=== PATIENT | female | born 2000 | race Caucasian/White ===

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

== ENCOUNTER 2018-01-08 00:18 | Outpatient (CLI) | payer OTHER ==
[2018-01-08] MEDS ORDERED: RINGERS SOLUTION,LACTATED 1,000 ML IV PRN (00:37)
[2018-01-08 01:02] LABS: APPEARANCE,URINE CLOUDY; BILIRUBIN,URINE NEGATIVE (NEGATIVE); COLOR,URINE YELLOW; GLUCOSE, URINE NEGATIVE (NEGATIVE); KETONES,URINE NEGATIVE (NEGATIVE); LEUKOCYTE ESTERASE,URINE NEGATIVE (NEGATIVE); NITRITE,URINE NEGATIVE (NEGATIVE); PROTEIN,URINE NEGATIVE (NEGATIVE); URINE SPECIFIC GRAVITY 1.016; UROBILINOGEN,URINE NEGATIVE mg/dL (<2.0)
[2018-01-08 01:27] LABS: URINE AMPHETAMINES SCREEN NEGATIVE; URINE BARBITURATES SCREEN NEGATIVE; URINE BENZODIAZEPINES SCREEN NEGATIVE; URINE COCAINE SCREEN NEGATIVE; URINE MARIJUANA (THC) SCREEN NEGATIVE; URINE METHADONE SCREEN NEGATIVE; URINE PHENCYCLIDINE SCREEN NEGATIVE
[2018-01-08] MEDS ORDERED: HYDROXYZINE PAMOATE 50 MG CAPSULE ONE (02:21)
[2018-01-08] MEDS ORDERED: HYDROXYZINE PAMOATE 50 MG CAPSULE PO ONE (02:30)
--- NOTE | 2018-01-08 02:40 | Non Stress Test Report ---
Non Stress Test Datetime Report Generated by CPN: 01/08/2018 02:39 DEMOGRAPHIC Test Number: 5 EGA NST: 38.1 INDICATION Indication for Study: Ordered by Provider MONITORING Monitor Explained: Monitor Explained; Test Explained; Patient Verbalized Understanding Time on Monitor: 01/08/2018 01:00 Time off Monitor: 01/08/2018 02:35 NST Duration: 95 NST INTERVENTIONS NST Interventions: PO Hydration; IV Fluids; Reposition Patient Physician Notified NST: Dr. Rodriguez BABY A: [id number] BABY A Movement : Present Contraction Frequency : 1-6 FHR Baseline : 135 Accelerations : 15X15 Decelerations : None Variability : Moderate 6-25bpm NST Review: Meets Criteria for Reactive NST NST Review and Verified By : REI Padron NST Results: Reactive NST REPORT Report Trigger: Send Report
== END 2018-01-08 03:00 | disposition home or self-care (01) ==
LOC: LC 00:18
PROVIDERS: ATTEND Obstetrics & Gynecology Gynecology
PROC: 4A1HXCZ Monitoring of Products of Conception, Cardiac Rate, External Approach (ICD-10-PCS; principal; 2018-01-08)
DX: O47.1 False labor at or after 37 completed weeks of gestation (principal); Z3A.38 38 weeks gestation of pregnancy
CPT/HCPCS: 80307; 81005

== ENCOUNTER 2018-01-08 08:15 | Inpatient (IN) | payer OTHER ==
[2018-01-08 08:56] LABS: APPEARANCE,URINE CLOUDY; BILIRUBIN,URINE NEGATIVE (NEGATIVE); COLOR,URINE STRAW; GLUCOSE, URINE NEGATIVE (NEGATIVE); KETONES,URINE NEGATIVE (NEGATIVE); LEUKOCYTE ESTERASE,URINE NEGATIVE (NEGATIVE); NITRITE,URINE NEGATIVE (NEGATIVE); PROTEIN,URINE NEGATIVE (NEGATIVE); URINE SPECIFIC GRAVITY 1.006; UROBILINOGEN,URINE NEGATIVE mg/dL (<2.0)
[2018-01-08 09:15] LABS: URINE AMPHETAMINES SCREEN NEGATIVE; URINE BARBITURATES SCREEN NEGATIVE; URINE BENZODIAZEPINES SCREEN NEGATIVE; URINE COCAINE SCREEN NEGATIVE; URINE MARIJUANA (THC) SCREEN NEGATIVE; URINE METHADONE SCREEN NEGATIVE; URINE PHENCYCLIDINE SCREEN NEGATIVE
--- NOTE | 2018-01-08 09:20 | Admission Physical ---
Datetime Report Generated by CPN: 01/08/2018 09:19 CURRENT ADMISSION Chief Complaint: Suspected Ruptured Membranes Indication for Induction: PROM Admit Impression : Term, Intrauterine ; No Active Labor Admit Plan: Initiate Labor Augmentation Protocol ALLERGIES Medication Allergies: No Medication Allergies: mushroom (01/08/2018) Latex: No Latex Allergies Food Allergies: mushrooms-swelling Environmental Allergies: denies OBSTETRICAL HISTORY EDC: 01/21/2018 00:00 : 1 Para: 0 Term: 0 : 0 SAB: 0 IAB: 0 Ectopic: 0 Livin Cesareans: 0 VBACs: 0 Multiple Births: 0 Gestational Diabetes: No Rh Sensitization: No Incompetent Cervix: No DELANEY: No Infertility: No ART Treatment: No Uterine Anomaly: No IUGR: No Hx Previous C/S: No Macrosomia: No Hx Loss/Stillborn: No PIH: No Hx : No Placenta Previa/Abruption: No Depression/PP Depression: No PTL/PROM: No Post Hemorrhage: No Current Procedures: Ultrasound Obstetrical History Comments: g1-current SEE RECORDS Alcohol: No Marijuana : No Cocaine: No Other Illicit Drugs: No Cigarettes: Never Smoker. 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 Heart Disease: No Hosp/Surgery: Yes Autoimmune Disorder: No Anesthetic Complications: No Kidney Disease: No Abnormal Pap Smear: No Neuro/Epilepsy: No Psychiatric Disorders: No Other Medical Diseases: Yes Hepatitis/Liver Disease: No Significant Family History: No Varicosities/Phlebitis: No Trauma/Violence : No Thyroid Dysfunction: No Medical History Comments: 2015 appendix removed, 2013 left knee partial reconstruction, 2016 right knee acl surgery, wisdom teeth removed, vasovagal nerve "attacks itself and is easily stimulated" and patient vasovagals and has syncopal episodes, occasional anxiety but never required medications INFECTIOUS HISTORY Gonorrhea: No Genital Herpes: No Chlamydia: No Tuberculosis: No Syphilis: No Hepatitis: No HIV/AIDS Exposure: No Rash or Viral Illness: No HPV: No PHYSICAL EXAM General: Normal HEENT: Deferred Neurologic: Normal Thyroid: Deferred Heart: Normal Lungs: Normal Breast: Deferred Back: Deferred Abdomen: Normal Genitourinary Exam: Normal Extremities: Normal DTRs: Deferred Pelvic Type: Adequate Physical Exam Comments: cervix exam per RN Vital Signs: Reviewed MEMBRANES Membranes: Ruptured Amniotic Fluid Color: Clear FETUS A EGA: 38.1 Monitoring: External US FHR- Baseline: 132 Variability: Moderate 6-25bpm Decelerations: None Presentation: Vertex Admit Comment: GBS + benign pn hx PLANS FOR LABOR AND DELIVERY Labor and Delivery: None Pain Management: Epidural Feeding Preference: Breast Benefit of Breast Feed Discussed: Yes Circumcision: Yes INFORMED CONSENT Assignment: Nadia Jeff MD Signature: with User ID: Olegario : with User ID: [email or web address]
[2018-01-08] MEDS ORDERED: OXYTOCIN/NORMAL SALINE 20 UNIT/1,000 ML RTUINJ IV PRN (09:25)
[2018-01-08] MEDS ORDERED: MISOPROSTOL 0.2 MG TABLET ONE (10:41)
[2018-01-08] MEDS ORDERED: OXYTOCIN/NORMAL SALINE 20 UNIT/1,000 ML RTUINJ ONE (10:42)
[2018-01-08] MEDS ORDERED: LIDOCAINE 1% INJ-PF (10 MG/ML) 30 ML SDV ONE (10:42)
[2018-01-08 11:31] LABS: ABSOLUTE LYMPHOCYTES (AUTO) 1.9 10^3/uL (0.5-4.7); ABSOLUTE MONOCYTES (AUTO) 0.9 10^3/uL (0.1-1.4); BASOPHILS % (AUTO) 0.3 % (0-2); EOSINOPHILS % (AUTO) 0.2 % (0-6); HEMATOCRIT 28.2 % (36.0-47.0); HEMOGLOBIN 9.5 g/dL (12.0-15.5); LYMPHOCYTES % (AUTO) 13.7 % (13-45); MEAN CORPUSCULAR HEMOGLOBIN 26.8 pg (27.0-33.4); MEAN CORPUSCULAR HGB CONC 33.6 g/dL (32.0-36.0); MEAN CORPUSCULAR VOLUME 80 fl (80-97); MONOCYTES % (AUTO) 6.7 % (3-13); PLATELET COUNT 165 10^3/uL (150-450); RED BLOOD COUNT 3.54 10^6/uL (3.72-5.28); RED CELL DISTRIBUTION WIDTH 14.6 % (11.5-14.0); SEGMENTED NEUTROPHILS % (AUTO) 79.1 % (42-78); TOTAL CELLS COUNTED % (AUTO) 100 %; WHITE BLOOD COUNT 13.9 10^3/uL (4.0-10.5)
[2018-01-08] MEDS ORDERED: NORMAL SALINE 250 ML IV PRN (12:57)
[2018-01-08] MEDS ORDERED: PROMETHAZINE HCL INJ 25 MG/1 ML VIAL ONE (14:44)
[2018-01-08] MEDS ORDERED: NALBUPHINE HCL INJ 10 MG/1 ML AMPULE ONE (14:44)
[2018-01-08] MEDS ORDERED: FENTANYL/BUPIVACAINE/NS/PF 300 MCG/150 ML RTUINJ EPI ONE (17:13)
[2018-01-08] MEDS ORDERED: BUPIVACAINE HCL 0.5 % INJ/PF 30 ML SDV ONE (17:13)
[2018-01-08] MEDS ORDERED: EPHEDRINE SULFATE INJ 50 MG/1 ML AMPULE ONE (17:13)
[2018-01-08] MEDS ORDERED: AMPICILLIN SOD INJ 2 GM VIAL ONE (19:48)
[2018-01-08] MEDS ORDERED: AMPICILLIN SOD INJ 2 GM VIAL IV ONE (19:52)
--- NOTE | 2018-01-08 21:41 | L&D Progress Notes ---
PROGRESS NOTES Datetime Report Generated by CPN: 01/08/2018 21:41 PROGRESS NOTE Impression: Normal Progression of Labor Procedures: Intrauterine Pressure Catheter Plan: Continue Present Management Vital Signs : Reviewed; Within Normal Limits Comment: IUPC placed in hopes of getting fetus to rotate. MVU calculated, which are adequate. Will continue to reposition pt. VAGINAL EXAM Dilatation: 4 Effacement: 100 Station: -1 Contractions: q 2-3 LAST VAGINAL EXAM-NURSING Dilitation: 4.0 Dilitation: 4.0 Dilitation: 4.0 Dilitation: 3.0 Dilitation: 1.5 Dilitation: 1.0 Dilitation: 1.0 Dilitation: 0.0 Dilitation: 1.0 Dilitation: 1.0 Dilitation: cl Effacement: 100 Effacement: 70 Effacement: 70 Effacement: 80 Effacement: 50 Effacement: 60 Effacement: 40 Effacement: 0 Effacement: thick Effacement: thick Effacement: th Station: 0 Station: 0 Station: 0 Station: 0 Station: 0 Station: -2 Station: -2 Station: -4 Station: high Station: high Station: hi Contractions: abd palpates firm Contractions: uterine irritability noted Contractions: pt states she has felt 3 contractions since being here. states she has had on and off contractions throughout the day and was in L_D yesterday with contractions. states contractions today are less intense than yesterday. CNM notified of Buna findings Contractions: uterine irritability noted MEMBRANES Membranes: Ruptured Membranes: Ruptured Amniotic Fluid Color: Clear Amniotic Fluid Color: Clear FETUS A FHR - Baseline: 150s Monitoring: External US Variability: Moderate 6-25bpm Decelerations: Early FHR Category: Category II FHR Comments: Will continue to monitor closely : 38.1 : 38.1 : 38.1 Presentation: Vertex Presentation: Vertex SIGNATURE SIGNATURE: ,[id number];,[id number];,[id number] SIGNATURE: ,[id number];,[id number] SIGNATURE: ,[id number] SIGNATURE: 14,[id number] SIGNATURE: 14,[id number] SIGNATURE: 14,[id number] SIGNATURE: 14,[id number] Signature: with User ID: [email or web address]
[2018-01-08] MEDS ORDERED: ACETAMINOPHEN 325 MG TABLET ONE (21:47)
[2018-01-08] MEDS ORDERED: CEFAZOLIN 2 GM/D5W RTU 2 GM/50 ML RTUPB IV ONE (23:35)
[2018-01-08] MEDS ORDERED: CITRIC ACID/SODIUM CITRATE ORAL SOLN 15 ML UDCUP ONE (23:35)
[2018-01-08] MEDS ORDERED: LIDOCAINE 2% INJ-PF (20 MG/ML) 10 ML AMPUL ONE (23:38)
--- NOTE | 2018-01-08 23:41 | L&D Progress Notes ---
PROGRESS NOTES Datetime Report Generated by CPN: 01/08/2018 23:41 PROGRESS NOTE Impression: Arrest of Dilatation/Descent Plan: Deliver- Section Informed Consent Obtained: Section Delivery; Risks, Benefits and Alternatives Discussed Vital Signs : Reviewed; Within Normal Limits Comment: Pt has to made cervical change since 1700. She had some effacement change at 2100, but has remained 4 cm. She has been very uncomfortable secondary to rectal pressure, but feeling the contractions. She states that she is very tired and is requesting a C/S. I am agreeable to this plan with the minimal cervical change and the persistant early decels. I placed an IUPC in hopes of changing the fetus' position. The decels resolved but she made no further change. VAGINAL EXAM Dilatation: 4 Effacement: 100 Station: -1 Dilitation: 4.0 Station: 0 Contractions: UTD pt sitting up in high fowlers MEMBRANES Membranes: Ruptured Amniotic Fluid Color: Clear FETUS A FHR - Baseline: 140s Monitoring: External US Variability: Moderate 6-25bpm Decelerations: Early FHR Category: Category I : 38.1 FETUS C SIGNATURE: 13,[id number];14,[id number];10,[id number] Signature: with User ID: [email or web address]
[2018-01-08] MEDS ORDERED: FENTANYL CITRATE INJ/PF 100 MCG/2 ML AMPUL ONE (23:51)
[2018-01-09] MEDS ORDERED: KETAMINE HCL INJ 500 MG/10 ML VIAL ONE
[2018-01-09] MEDS ORDERED: EPHEDRINE SULFATE INJ 50 MG/1 ML AMPULE ONE (00:01)
[2018-01-09] MEDS ORDERED: FENTANYL CITRATE INJ/PF 100 MCG/2 ML AMPUL ONE (00:01)
[2018-01-09] MEDS ORDERED: OXYTOCIN 10 UNIT/ML VIAL ONE (00:01)
[2018-01-09] MEDS ORDERED: MIDAZOLAM 2 MG/2 ML INJ ONE (00:01)
[2018-01-09] MEDS ORDERED: PROMETHAZINE HCL INJ 25 MG/1 ML VIAL IV PRN ×3 (00:45→01:14)
[2018-01-09] MEDS ORDERED: DIPHENHYDRAMINE HCL 50 MG/ML VIAL IV PRN (00:45)
[2018-01-09] MEDS ORDERED: FENTANYL CITRATE INJ/PF 100 MCG/2 ML AMPUL IV PRN ×3 (00:45)
[2018-01-09] MEDS ORDERED: MORPHINE SULFATE 10 MG/ML INJ IV PRN (00:45)
[2018-01-09] MEDS ORDERED: ONDANSETRON HCL INJ/PF 4 MG/2 ML SDV IV PRN (00:45)
[2018-01-09] MEDS ORDERED: MEPERIDINE HCL/PF INJ 25 MG/1 ML DISP.SYRIN IV PRN (00:45)
[2018-01-09] MEDS ORDERED: ACETAMINOPHEN 1,000 MG/100 ML RTUPB IV ONE (01:13)
[2018-01-09] MEDS ORDERED: ACETAMINOPHEN 325 MG TABLET PO PRN (01:14)
[2018-01-09] MEDS ORDERED: OXYCODONE-ACETAMINOPHEN 5-325 MG TABLET PO PRN ×2 (01:14)
[2018-01-09] MEDS ORDERED: DIPH/PERTUSS(ACELL)/TETANUS VAC/PF 0.5 ML SYR (>=10YO) IM PRN (01:14)
[2018-01-09] MEDS ORDERED: OXYTOCIN/NORMAL SALINE 20 UNIT/1,000 ML RTUINJ IV PRN (01:14)
[2018-01-09] MEDS ORDERED: MEASLES,MUMPS&RUBELLA VACC/PF 0.5 ML VIAL SUBCUT PRN (01:14)
[2018-01-09] MEDS ORDERED: HYDROMORPHONE HCL INJ/PF 2 MG/ML AMPULE IV PRN (01:14)
[2018-01-09] MEDS ORDERED: SIMETHICONE 80 MG TAB.CHEW PO PRN (01:14)
[2018-01-09] MEDS ORDERED: RINGERS SOLUTION,LACTATED 1,000 ML IV PRN (01:14)
--- NOTE | 2018-01-09 01:27 | Operative Report ---
Operative Report DATE OF SURGERY: 01/09/18 PREOPERATIVE DIAGNOSIS: 1. Intrauterine at 38-2/7 weeks. 2. Failure to progress. 3. GBS negative. 4. Maternal fever. 5. Rh-. 6. Rubella immune POSTOPERATIVE DIAGNOSIS: Same OPERATION: Primary low transverse section SURGEON: SD [place] ANESTHESIA: Epidural TISSUE REMOVED OR ALTERED: Placenta COMPLICATIONS: None ESTIMATED BLOOD LOSS: 600 mL INTRAOPERATIVE FINDINGS: Normal uterus, tubes and ovary; male fetus in a cephalic position PROCEDURE: The patient was taken to the operating room where her epidural anesthesia was found to be adequate. She was then prepped and draped in the normal sterile fashion and placed in the dorsal supine position with a leftward tilt. A Pfannenstiel skin incision was then made and carried through to the underlying layers of the fascia with the scalpel. The fascia was incised in the midline and the incision extended laterally with the Santana scissors. The superior aspect of the fascial incision was then grasped with Jose clamps elevated and the underlying rectus muscles dissected off [bluntly]. Attention was then turned to the inferior aspect of the fascial incision which in a similar fashion was grasped, tented up with Jose clamps, and the rectus muscles dissected off [bluntly and sharply]. The rectus muscles were then in the midline and the peritoneum at the amount identified and entered [bluntly]. The peritoneal incision was then extended superiorly and inferiorly with good visualization of the bladder. The bladder blade was inserted and the vesicouterine peritoneum identified grasped with Czech pickups and entered sharply with the Metzenbaum scissors. This incision was then extended laterally with the Metzenbaum scissors and a bladder flap created digitally. The bladder blade was then reinserted and the lower uterine segment incised in a transverse fashion with the scalpel. The uterine incision was then extended bluntly. The bladder blade was removed and the infant's head was delivered from cephalic presentation atraumatically. The nose and mouth were suctioned and the cord doubly clamped and cut. And the was handed off to waiting pediatricians. The placenta was then delivered manually and the uterus exteriorized and cleared of all clots and debris. The uterine incision was then repaired with 1- 0 Vicryl in a running locked fashion. A second layer using 0 chromic was used to obtain hemostasis via imbrication of the initial layer. The bladder flap was then repaired with 3-0 Vicryl in a running fashion. The uterus was returned to the patient's abdomen and Interceed was placed overlying the uterine incision, as well as a piece placed vertically on the anterior surface of the uterus, to prevent adhesions. The gutters were cleared of all clots and debris. All operative sites were noted to be hemostatic. The fascia was reapproximated with 0 Vicryl in a running fashion from each lateral edge to the midline. Subcutaneous fat layer was then closed in an interrupted fashion with 3-0 Vicryl. The skin was closed with 4-0 Monocryl in a running subcuticular fashion . The patient tolerated the procedure well. Sponge, lap, needle and instrument counts are correct x 2. 2 g of Ancef were given prior to skin incision. The patient was taken to the recovery area awake and in stable condition.
--- NOTE | 2018-01-09 03:10 | Delivery Summary ---
Del Sum A-C Datetime Report Generated by CPN: 01/09/2018 03:09 DELIVERY PERSONNEL DELIVERY PERSONNEL: [id number] Delivery Doctor:: Nadia Jeff MD Anesthesiologist:: Robert Crowe MD NUTRITION TEACHER:: Tiara Pichardo CRNA Labor and Delivery Nurse:: Vicenta Mccullough RNzipper trimmer Nurse:: Sharita Weiner RN Parachute Line Tier:: Vicenta Mccullough RN Neonatal Nurse Practitioner:: AV Munguia Nursery Nurse:: Jo-Ann Bosch RN MSN [employer] Director/FINANCIAL INSTITUTION MANAGER: Gabby Rodriguez, BIN TRIPPER OPERATOR [employer] Director/FINANCIAL INSTITUTION MANAGER: Adela Marie, ST MATERNAL INFORMATION Delivery Anesthesia: Epidural Medications After Delivery: Pitocin Drip 20 Units/1000ml NSS Maternal Complications: Maternal Fever Provider Comments: Pt presented to L_D with SROM. Pt labored and remained 4 cm from 1700 to 2300. She became frustrated and tired of feeling a tremendous amount of pressure in spite of her epidural. She also developed a fever and was given Ampicillin. Pt requested a C/S and I agreed that this was the best route delivery at this time secondary to fever and FTP. LABOR SUMMARY EDC: 01/21/2018 00:00 No. Babies in Womb: 1 Attempted: No Labor Anesthesia: Epidural LABOR INFORMATION Reason for Induction: Not Applicable Onset of Labor: 01/08/2018 07:30 Oxytocin: Augmentation Group B Beta Strep: negative Antibiotics # of Doses: 0 Steroids Given: None Reason Steroids Not Administered: Not Applicable MEMBRANES Membranes Rupture Method: Spontaneous Rupture of Membranes: 01/08/2018 07:30 Length of Rupture (hr): 16.95 Amniotic Fluid Color: Clear Amniotic Fluid Amount: Small Amniotic Fluid Odor: Normal STAGES OF LABOR Stage 3 hr: 0 Stage 3 min: 1 Total Time in Labor hr: 16 Total Time in Labor min: 58 VAGINAL DELIVERY Episiotomy: None Laceration #1: None Laceration Repair: Not Applicable Sponge Count Correct: N/A Sharps Count Correct: N/A CSECTION DELIVERY Primary Indication: Failure to Progress Secondary Indication: Secondary Arrest of Dilatation CSection Urgency: Non-Scheduled CSection Incidence: Primary Labor: Labor Elective: Nonelective CSection Incision: Lower Uterine Transverse BABY A INFORMATION Infant Delivery Date/Time: 01/09/2018 00:27 Method of Delivery: Born in Route : No : N/A Forceps: N/A Vacuum Extraction: N/A Shoulder Dystocia : No PRESENTATION/POSITION BABY A Presentation: Cephalic Cephalic Presentation: Vertex Vertex Position: Right Occipital Anterior Breech Presentation: N/A PLACENTA INFORMATION BABY A Placenta Delivery Time : 01/09/2018 00:28 Placenta Method of Delivery: Manual Removal Placenta Status: Delivered SCORES BABY A Heart Rate 1 min: >100 bpm Resp Effort 1 min: Good Cry Reflex Irritability 1 min: Cough or Sneeze or Pulls Away Muscle Tone 1 min: Active Motion Color 1 min: Blue/Pale Resuscitation Effort 1 min: Tactile Stimulation SCORE 1 MIN: 8 Heart Rate 5 min: >100 bpm Resp Effort 5 min: Good Cry Reflex Irritability 5 min: Cough or Sneeze or Pulls Away Muscle Tone 5 min: Active Motion Color 5 min: Blue/Pale SCORE 5 MIN: 8 INFANT INFORMATION BABY A Gestational Age at Delivery: 38.1 Gestational Status: Early Term- 37- 38.6 Weeks Outcome : Liveborn Condition : Stable Infant Sex: Male IDENTIFICATION BABY A Infant Verification Date/Time: 01/09/2018 01:55 ID Band Number: [id number] Mother's Name Verified: Yes RN Verifying Infant: Hussein Mccullough, RN _ S. Lattibsommerir, RNC WEIGHT/LENGTH BABY A Infant Birthweight (gm): 3065 Infant Weight (lb): 6 Infant Weight (oz): 12 Infant Length (in): 20.00 Length (cm): 50.80 CORD INFORMATION BABY A No. Cord Vessels: 3 Nuchal Cord : N/A Cord Blood Taken: Yes-For Eval (Mom's Blood Type - or O+) Infant Suction: Mouth; Nose ASSESSMENT BABY A Infant Complications: None Physical Findings at Delivery: Within Normal Limits Infant Respirations: Appears Normal Skin to Skin: No Fisheries Biologist/ALS Called : Yes Infant Care By: K. Bosch RN Transferred To: Nursery BABY B INFORMATION : N/A SIGNATURES Signature: with User ID: [email or web address] : I was personally available for consultation and serving as supervising physician for the MLP.
[2018-01-09] MEDS ORDERED: AMPICILLIN SOD INJ 2 GM VIAL IV SCH (03:52)
[2018-01-09] MEDS ORDERED: AMPICILLIN SODIUM 2 GM in NORMAL SALINE 100 ML IV SCH ×2 (04:00→06:00)
[2018-01-09] MEDS: KETOROLAC TROMETHAMINE INJ/PF 30 MG/1 ML SDV IV SCH ×4 (05:47→23:05)
[2018-01-09] MEDS ORDERED: AMPICILLIN SOD INJ 1 GM VIAL IV PRN (06:00)
[2018-01-09] MEDS ORDERED: AMPICILLIN SOD INJ 2 GM VIAL ONE (06:02)
[2018-01-09] MEDS ORDERED: IRON SUCROSE COMPLEX INJ/PF 100 MG/5 ML SDV IV ONE (09:00)
[2018-01-09] MEDS: DOCUSATE SODIUM 100 MG CAPSULE PO SCH ×2 (10:00→17:28)
[2018-01-09] MEDS: PRENATAL VITAMIN W DHA CAPSULE PO SCH (10:00)
[2018-01-09] MEDS: AMPICILLIN SODIUM 2 GM in NORMAL SALINE 100 ML IV SCH ×4 (10:03→21:15)
[2018-01-09] MEDS ORDERED: ONDANSETRON HCL INJ/PF 4 MG/2 ML SDV ONE (11:59)
[2018-01-09] MEDS ORDERED: METOCLOPRAMIDE HCL INJ/PF 10 MG/2 ML SDV ONE (11:59)
[2018-01-09] MEDS ORDERED: GLYCOPYRROLATE 1 MG/5 ML SYRINGE ONE (11:59)
[2018-01-09] MEDS ORDERED: KETOROLAC TROMETHAMINE 60 MG/2 ML SDV ONE (11:59)
[2018-01-09] MEDS ORDERED: DEXAMETHASONE SOD PHOSPHATE INJ 4 MG/1 ML VIAL ONE (11:59)
[2018-01-10] MEDS: AMPICILLIN SODIUM 2 GM in NORMAL SALINE 100 ML IV SCH ×2 (01:57→05:32)
[2018-01-10] MEDS: KETOROLAC TROMETHAMINE INJ/PF 30 MG/1 ML SDV IV SCH (05:32)
[2018-01-10 07:37] LABS: HEMATOCRIT 18.8 % (36.0-47.0); MEAN CORPUSCULAR HEMOGLOBIN 26.6 pg (27.0-33.4); MEAN CORPUSCULAR HGB CONC 33.5 g/dL (32.0-36.0); MEAN CORPUSCULAR VOLUME 80 fl (80-97); PLATELET COUNT 144 10^3/uL (150-450); RED BLOOD COUNT 2.36 10^6/uL (3.72-5.28); RED CELL DISTRIBUTION WIDTH 14.6 % (11.5-14.0); WHITE BLOOD COUNT 16.1 10^3/uL (4.0-10.5)
[2018-01-10 07:41] LABS: HEMOGLOBIN 6.3 g/dL (12.0-15.5)
[2018-01-10] MEDS: AMPICILLIN SOD INJ 2 GM VIAL IM SCH (08:35)
--- NOTE | 2018-01-10 09:56 | PDOC PROGRESS REPORT ---
Subjective Progress Note for:: 01/10/18 Subjective:: Patient states that she feels good; pain controlled. Her lochia is decreasing. Patient denies chest pain, shortness of breath, fever/chills or nausea/ vomiting. She is ambulating voiding without difficulty. Reason For Visit: Physical Exam - Physical Exam Vital Signs: Temp Pulse Resp BP Pulse Ox 98.2 F 93 H 18 130/77 H 98 01/10/18 07:32 01/10/18 07:32 01/10/18 07:32 01/10/18 07:32 01/10/18 07:32 Intake & Output 01/09/18 01/10/18 01/11/18 06:59 06:59 06:59 Intake Total 493 200 Output Total 500 Balance -7 200 Weight 81.6 kg General appearance: PRESENT: no acute distress Respiratory exam: PRESENT: clear to auscultation jurgen Cardiovascular exam: PRESENT: RRR, tachycardia GI/Abdominal exam: PRESENT: normal bowel sounds, soft - Appropriate tenderness; incision: Clean/dry and intact; no erythema Extremities exam: ABSENT: calf tenderness, clubbing, full ROM, joint swelling, pedal edema, tenderness, +1 edema, +2 edema, other Result Laboratory Results: 01/10/18 07:06 01/10/18 07:06 WBC 16.1 H RBC 2.36 L Hgb 6.3 L D Hct 18.8 L MCV 80 MCH 26.6 L MCHC 33.5 RDW 14.6 H Plt Count 144 L Assessment & Plan - Diagnosis (1) Status post primary low transverse section Is this a current diagnosis for this admission?: Yes (2) Postoperative anemia Is this a current diagnosis for this admission?: Yes (3) Premature rupture of membranes, antepartum Is this a current diagnosis for this admission?: Yes (4) Failure to progress in labor Is this a current diagnosis for this admission?: Yes (5) Maternal fever during labor Is this a current diagnosis for this admission?: Yes - Time Time Spent with patient: 15-24 minutes - Explained to the patient that her hemoglobin was severely low and that she would feel better with a blood transfusion. Informed her that she receive surveillance during her transfusion - Plan Summary Plan Summary: Plan: 1. Status post primary low transverse section--doing well surgically 2. Severe anemia--will transfuse 2 units of packed red blood cells 3. Continue postop/ care
[2018-01-10] MEDS: PRENATAL VITAMIN W DHA CAPSULE PO SCH (09:57)
[2018-01-10] MEDS: DOCUSATE SODIUM 100 MG CAPSULE PO SCH ×2 (09:57→17:13)
[2018-01-10] MEDS ORDERED: FUROSEMIDE INJ/PF 40 MG/4 ML SDV IV PRN (11:44)
[2018-01-10] MEDS: IBUPROFEN 800 MG TABLET PO SCH ×2 (14:38→22:18)
[2018-01-11] MEDS: IBUPROFEN 800 MG TABLET PO SCH ×2 (05:23→13:29)
[2018-01-11] MEDS: PRENATAL VITAMIN W DHA CAPSULE PO SCH (09:27)
[2018-01-11] MEDS: DOCUSATE SODIUM 100 MG CAPSULE PO SCH (09:27)
--- NOTE | 2018-01-11 10:25 | PDOC DISCHARGE SUMMARY ---
Final Diagnosis Discharge Date: 01/11/18 - Final Diagnosis (1) Failure to progress in labor Is this a current diagnosis for this admission?: Yes (2) Maternal fever during labor Is this a current diagnosis for this admission?: Yes (3) Postoperative anemia Is this a current diagnosis for this admission?: Yes (4) Status post primary low transverse section Is this a current diagnosis for this admission?: Yes Discharge Data - Discharge Medication Prescriptions: Acetaminophen with Codeine [Tylenol #3 Tablet] 1 each PO Q4HP PRN #20 tablet PRN Reason: Home Medications: No122/Iron/Folic Acid [ Multi Tablet] 1 tab PO DAILY 11/12/17 Acetaminophen with Codeine [Tylenol #3 Tablet] 1 each PO Q4HP PRN #20 tablet Procedures: Cerciage Intrapartum Procedure(s): : Low Cervical, Transverse - Diagnosis Test Laboratory: Temp Pulse Resp BP Pulse Ox 98.3 F 84 16 131/82 H 98 01/11/18 07:46 01/11/18 07:46 01/11/18 07:46 01/11/18 07:46 01/11/18 07:46 01/08/18 01/08/18 01/10/18 08:36 10:45 07:06 RBC 3.54 L 2.36 L Hgb 9.5 L 6.3 L D Hct 28.2 L 18.8 L Urine Opiates Screen NEGATIVE - Discharge information/Instructions Discharge Activity: Balance Activity w/Rest, No Lifting Over 10 Pounds, No Lifting/Push/Pulling, Pelvic Rest, No tub bath Discharge Diet: Regular Disposition: HOME, SELF-CARE Follow up with: [facility] in: 1, Weeks
[2018-01-11 10:51] LABS: ABSOLUTE EOSINOPHILS # (AUTO) 0.1 10^3/uL (0.0-0.6); ABSOLUTE LYMPHOCYTES (AUTO) 2.1 10^3/uL (0.5-4.7); ABSOLUTE MONOCYTES (AUTO) 0.5 10^3/uL (0.1-1.4); ABSOLUTE NEUT (AUTO) 10.6 10^3/uL (1.7-8.2); BASOPHILS % (AUTO) 0.3 % (0-2); EOSINOPHILS % (AUTO) 0.5 % (0-6); HEMATOCRIT 25.8 % (36.0-47.0); LYMPHOCYTES % (AUTO) 15.9 % (13-45); MEAN CORPUSCULAR HEMOGLOBIN 27.3 pg (27.0-33.4); MEAN CORPUSCULAR HGB CONC 33.9 g/dL (32.0-36.0); MEAN CORPUSCULAR VOLUME 81 fl (80-97); MONOCYTES % (AUTO) 3.7 % (3-13); PLATELET COUNT 169 10^3/uL (150-450); RED BLOOD COUNT 3.21 10^6/uL (3.72-5.28); RED CELL DISTRIBUTION WIDTH 14.7 % (11.5-14.0); SEGMENTED NEUTROPHILS % (AUTO) 79.6 % (42-78); TOTAL CELLS COUNTED % (AUTO) 100 %; WHITE BLOOD COUNT 13.3 10^3/uL (4.0-10.5)
[2018-01-11 10:52] LABS: HEMOGLOBIN 8.7 g/dL (12.0-15.5)
[2018-01-11 12:18] VITALS: BP 139/83
== END 2018-01-11 13:35 | disposition home or self-care (01) | DRG 787 ==
LOC: LC 08:15 → LR 09:18 → 2S 01-09 03:16
PROVIDERS: ADMIT Obstetrics & Gynecology; ATTEND Obstetrics & Gynecology
PROC: 10D00Z1 Extraction of Products of Conception, Low, Open Approach (ICD-10-PCS; principal; 2018-01-09)
PROC: 30233N1 Transfusion of Nonautologous Red Blood Cells into Peripheral Vein, Percutaneous Approach (ICD-10-PCS; 2018-01-10)
DX: O42.02 Full-term premature rupture of membranes, onset of labor within 24 hours of rupture (principal); O75.2 Pyrexia during labor, not elsewhere classified; O36.0930 Maternal care for other rhesus isoimmunization, third trimester, not applicable or unspecified; D62 Acute posthemorrhagic anemia; O62.1 Secondary uterine inertia; O99.02 Anemia complicating childbirth; Z3A.38 38 weeks gestation of pregnancy; Z37.0 Single live birth
CPT/HCPCS: 1961; 36415; 36430; 80307; 81005; 84112; 85025; 85027; 86592; 86850; 86870; 86900; 86901; 86920; 86922; 88307; 94760; 94799; J0131; J0290; J0690; J1100; J1756; J1885; J1940; J2250; J2300; J2405; J2550; J2590; J2765; J3010; J3490; P9016

== ENCOUNTER 2018-02-09 21:48 | Emergency (ER) | payer OTHER ==
[2018-02-09 22:50] LABS: ABSOLUTE EOSINOPHILS # (AUTO) 0.1 10^3/uL (0.0-0.6); ABSOLUTE MONOCYTES (AUTO) 0.4 10^3/uL (0.1-1.4); ABSOLUTE NEUT (AUTO) 8.4 10^3/uL (1.7-8.2); BASOPHILS % (AUTO) 0.3 % (0-2); EOSINOPHILS % (AUTO) 0.7 % (0-6); HEMATOCRIT 34.5 % (36.0-47.0); HEMOGLOBIN 11.6 g/dL (12.0-15.5); MEAN CORPUSCULAR HEMOGLOBIN 27.3 pg (27.0-33.4); MEAN CORPUSCULAR HGB CONC 33.7 g/dL (32.0-36.0); MEAN CORPUSCULAR VOLUME 81 fl (80-97); PLATELET COUNT 209 10^3/uL (150-450); RED BLOOD COUNT 4.25 10^6/uL (3.72-5.28); RED CELL DISTRIBUTION WIDTH 15.8 % (11.5-14.0); TOTAL CELLS COUNTED % (AUTO) 100 %; WHITE BLOOD COUNT 10.9 10^3/uL (4.0-10.5)
[2018-02-09 22:57] LABS: APPEARANCE,URINE CLOUDY; BILIRUBIN,URINE NEGATIVE (NEGATIVE); COLOR,URINE YELLOW; GLUCOSE, URINE NEGATIVE (NEGATIVE); KETONES,URINE NEGATIVE (NEGATIVE); LEUKOCYTE ESTERASE,URINE NEGATIVE (NEGATIVE); NITRITE,URINE NEGATIVE (NEGATIVE); PROTEIN,URINE NEGATIVE (NEGATIVE); URINE SPECIFIC GRAVITY 1.024
[2018-02-09 23:07] LABS: ALANINE AMINOTRANSFERASE 30 U/L (5-35); ALKALINE PHOSPHATASE 122 U/L (50-135); ANION GAP 9 (5-19); ASPARTATE AMINO TRANSFERASE 77 U/L (5-30); BILIRUBIN,DIRECT 0.4 mg/dL (0.0-0.4); BILIRUBIN,TOTAL 0.6 mg/dL (0.2-1.3); BLOOD UREA NITROGEN 17 mg/dL (7-20); CALCIUM 9.6 mg/dL (8.4-10.2); CARBON DIOXIDE 27 mmol/L (22-30); CHLORIDE 107 mmol/L (98-107); GLUCOSE 100 mg/dL (75-110); POTASSIUM 4.4 mmol/L (3.6-5.0); SODIUM 142.6 mmol/L (137-145)
[2018-02-09 23:08] LABS: TOTAL PROTEIN 6.7 g/dL (6.3-8.2)
[2018-02-09] MEDS ORDERED: FAMOTIDINE 20 MG TABLET PO ONE (23:10)
[2018-02-09] MEDS ORDERED: LIDOCAINE 2% VISCOUS SOLN 20 ML UDCUP PO ONE (23:10)
[2018-02-09] MEDS ORDERED: METOCLOPRAMIDE HCL ORAL SOLN 10 MG/10 ML UDCUP PO ONE (23:10)
[2018-02-09] MEDS ORDERED: ONDANSETRON 4 MG TAB.RAPDIS PO ONE (23:10)
[2018-02-09] MEDS ORDERED: MAG HYDROX/AL HYDROX/SIMETH SUSP 30 ML UDCUP PO ONE (23:10)
--- NOTE | 2018-02-09 23:37 | ER Document Report ---
ED General - General Chief Complaint: Upper Abdominal Pain Stated Complaint: BACK AND ABDOMINAL PAIN Time Seen by Provider: 02/09/18 22:49 Notes: Patient is a 17-year-old female without chronic medical problems who presents with several weeks of intermittent upper abdominal pain. The patient states that this is a severe, aching upper abdominal pain that doubles her over when it is present and then spontaneously resolves. She states that this occurs sometimes randomly although on history taking it does seem to consistently occur after ingestion of various food items. She states prior to today's episode she drank a [employer] cream based drink in approximately 10-20 minutes later developed the throbbing, aching, stabbing pain to the central and right upper abdomen. She notes associated nausea without vomiting. She states that the pain has now mostly resolved. Prior to the past several weeks she denies any previous history of the same. The pain does relieve spontaneously. She denies any fever or constitutional symptoms. She has not seen her general doctor regarding today's concerns. TRAVEL OUTSIDE OF THE [place] IN LAST 30 DAYS: No - Related Data Allergies/Adverse Reactions: mushroom Allergy (Verified 01/08/18 08:26) Past Medical History - Social History Smoking Status: Never Smoker Frequency of alcohol use: Occasional Drug Abuse: None Family History: Reviewed & Not Pertinent Patient has suicidal ideation: No Patient has homicidal ideation: No Renal/ Medical History: Denies: Hx Peritoneal Dialysis GI Medical History: Reports: Hx Gastroesophageal Reflux Disease Past Surgical History: Reports: Hx Appendectomy, Hx Cardiac Surgery, Hx Oral Surgery, Hx Orthopedic Surgery - L/R knee Physical Exam - Vital signs Vitals: Temp Pulse Resp BP Pulse Ox 98.7 F 113 H 18 128/87 H 100 02/09/18 21:57 02/09/18 21:57 02/09/18 21:57 02/09/18 21:57 02/09/18 21:57 Course - Re-evaluation Re-evalutation: 02/09/18 23:35 Patient presents clinical history and exam most consistent with symptomatic cholelithiasis. Patient has had progressive worsening of right upper quadrant pain worsened by eating but has been able to tolerate some oral intake. Initial vitals did show mild tachycardia which has resolved at the time of my assessme nt. Laboratories do not demonstrate a significant leukocytosis, LFT derangements, elevated bilirubin, alkaline phosphatase, or an elevated lipase. A right upper quadrant ultrasound does not demonstrate evidence of acute cholecystitis. Patient is able to tolerate oral intake.I have advised the pat gretchen that she will likely require an elective outpatient cholecystectomy. We have also empirically started omeprazole and Carafate as the patient does also have some reflux symptoms and her symptoms could alternatively be due to upper stomach irritation such as gastritis. At this time will discharge with return precautions and follow-up recommendations. Verbal discharge instructions given a the bedside and opportunity for questions given. Medication warnings reviewed. Patient is in agreement with this plan and has verbalized understanding of return precautions and the need for primary care follow-up in the next 24-72 hours. - Vital Signs Vital signs: Temp Pulse Resp BP Pulse Ox 98.5 F 104 H 18 121/71 98 02/10/18 01:00 02/10/18 01:00 02/10/18 01:00 02/10/18 01:00 02/10/18 01:00 - Laboratory Result Diagrams: 02/09/18 22:34 02/09/18 22:34 Laboratory results interpreted by me: 02/09/18 02/09/18 02/09/18 22:34 22:34 22:34 WBC 10.9 H Hgb 11.6 L Hct 34.5 L RDW 15.8 H Absolute Neutrophils 8.4 H AST 77 H Urine Urobilinogen 4.0 H Discharge - Discharge Clinical Impression: Epigastric abdominal pain, Symptomatic cholelithiasis Condition: Good Disposition: HOME, SELF-CARE Additional Instructions: You have gallstones that are most likely causing your symptoms. Be sure to avoid fat containing foods until you follow-up with a surgeon to have the gallbladder removed as eating these foods will trigger your pain. Please return to the emergency department if you develop a fever greater than 100.4F, persistent vomiting, worsening of your pain, or any other symptoms that are worrisome to you. Your symptoms could alternatively be due to stomach inflammation and irritation. As we have discussed, the most important thing is lifestyle changes. You need to avoid smoking, sodas, tea, coffee, alcohol, spicy foods, and acidic foods such as citrus fruits, tomato based products, berries, and most fruit juices. Prescriptions: Omeprazole 20 mg PO BID #60 tablet. Sucralfate [Carafate 1 gm Tablet] 1 gm PO ACHS #120 tablet Referrals: SYDNIE POTTS MD [ACTIVE STAFF] - Follow up in 3-5 days
[2018-02-09] MEDS ORDERED: LANSOPRAZOLE 30 MG TAB.RAP.DR PO ONE (23:38)
--- NOTE | 2018-02-10 00:38 | RADIOLOGY REPORT (SQ) ---
US ABDOMEN LIMITED HISTORY: Right upper quadrant pain. COMPARISON: None. TECHNIQUE: Grayscale and color Doppler imaging of the right upper quadrant was performed. FINDINGS: The liver measures 15 cm. The liver has normal echotexture without focal lesion identified. The main portal vein has normal hepatopedal flow. Multiple shadowing gallstones are present. No pericholecystic fluid or gallbladder wall thickening. There is a negative sonographic Nick sign. The common bile duct measures 2 mm. The visualized portions of the pancreas are unremarkable. The right kidney measures 10.7 cm in length, without hydronephrosis. The visualized portions of the IVC and aorta are patent. IMPRESSION: Cholelithiasis without evidence of acute cholecystitis.
[2018-02-10 01:10] VITALS: BP 121/71
== END 2018-02-10 01:00 | disposition home or self-care (01) ==
LOC: ER 21:48
DX: K80.80 Other cholelithiasis without obstruction (principal); R10.13 Epigastric pain; R11.0 Nausea
CPT/HCPCS: 36415; 76705; 80053; 81001; 81025; 83690; 85025; 99284

== ENCOUNTER 2018-02-11 22:43 | Emergency (ER) | payer OTHER ==
[2018-02-11] MEDS ORDERED: NORMAL SALINE 1000 ML 1,000 ML IV ONE (23:35)
[2018-02-11] MEDS ORDERED: MORPHINE SULFATE 10 MG/ML INJ IV ONE (23:36)
[2018-02-11] MEDS ORDERED: ONDANSETRON HCL INJ/PF 4 MG/2 ML SDV IV ONE (23:36)
--- NOTE | 2018-02-11 23:37 | ER Document Report ---
ED Medical Screen (RME) - General Chief Complaint: Abdominal Pain Stated Complaint: ABDOMINAL PAIN Time Seen by Provider: 02/11/18 23:24 Mode of Arrival: Ambulatory Information source: Patient Notes: Patient is an otherwise healthy 17-year-old female who presents to the emergency department with right upper quadrant pain and vomiting. Patient reports that she has 1 month . She reports that while she was she was diagnosed with gallbladder disease. She is supposed to follow-up with outpatient surgery however her symptoms have worsened over the last couple of days. Exam: Tenderness to palpation to right upper quadrant. I have greeted and performed a rapid initial assessment of this patient. A comprehensive ED assessment and evaluation of the patient, analysis of test results and completion of the medical decision making process will be conducted by additional ED providers. Dictation of this chart was performed using voice recognition software; therefore, there may be some unintended grammatical errors. TRAVEL OUTSIDE OF THE [place] IN LAST 30 DAYS: No - Related Data Allergies/Adverse Reactions: mushroom Allergy (Verified 01/08/18 08:26) Past Medical History Renal/ Medical History: Denies: Hx Peritoneal Dialysis GI Medical History: Reports: Hx Gastroesophageal Reflux Disease Past Surgical History: Reports: Hx Appendectomy, Hx Cardiac Surgery, Hx Oral Surgery, Hx Orthopedic Surgery - L/R knee Physical Exam - Vital signs Vitals: Temp Pulse Resp BP Pulse Ox 97.8 F 83 16 145/89 H 100 02/11/18 22:52 02/11/18 22:52 02/11/18 22:52 02/11/18 22:52 02/11/18 22:52 Course - Vital Signs Vital signs: Temp Pulse Resp BP Pulse Ox 97.8 F 83 16 145/89 H 100 02/11/18 22:52 02/11/18 22:52 02/11/18 22:52 02/11/18 22:52 02/11/18 22:52
--- NOTE | 2018-02-11 23:43 | ER Document Report ---
ED General - General Chief Complaint: Abdominal Pain Stated Complaint: ABDOMINAL PAIN Time Seen by Provider: 02/11/18 23:24 Mode of Arrival: Ambulatory Notes: Patient is a 17-year-old female with cholelithiasis that presents to the emergency department for chief complaint of right upper quadrant abdominal pain. Patient states that she has been having right upper quadrant pain, with nausea and vomiting over the past week, she was seen in the ED 2 days ago, for similar symptoms, but they worsened today, so she decided come back to the emergency department. She denies any associated fever chills or night sweats. She did vomit 3 times today, she currently rates her pain as a 10 out of 10 in the right upper quadrant of her abdomen, and worse with any palpation to that region. She states she was was to be scheduled to have surgery, as she was diagnosed with cholelithiasis during her , and they waited until she delivered which was 1 month ago. She denies having any chest pain, shortness of breath, difficulty breathing, dysuria or hematuria. Past Medical History: Denies chronic medical conditions Past Surgical History: Appendectomy, knee surgery, Social History: Denies tobacco, alcohol or drug use. Family History: Reviewed and noncontributory for presenting illness Allergies: Reviewed, see documented allergy list. REVIEW OF SYSTEMS: Other than noted above, the 12 point review of systems was reviewed with the patient and were negative, all pertinent findings are included in the HPI. PHYSICAL EXAMINATION: Vital signs reviewed, nursing noted reviewed. GENERAL: Patient appears uncomfortable on exam, but appropriate HEAD: Atraumatic, normocephalic. EYES: Eyes appear normal, extraocular movements intact, sclera anicteric, conjunctiva are normal. ENT: nares patent, oropharynx clear without exudates. Moist mucous membranes. NECK: Normal range of motion, supple without lymphadenopathy LUNGS: Breath sounds clear to auscultation bilaterally and equal. No wheezes rales or rhonchi. HEART: Regular rate and rhythm without murmurs ABDOMEN: Soft, right upper quadrant tenderness with palpation, positive Nick's sign, normoactive bowel sounds. No rebound, guarding, or rigidity. No masses appreciated. EXTREMITIES: Nontender, good range of motion, no pitting or edema. NEUROLOGICAL: No focal neurological deficits. Moves all extremities spontaneously Motor and sensory grossly intact on exam. PSYCH: Normal mood, normal affect. SKIN: Warm, Dry, normal turgor, no rashes or lesions noted on exposed skin TRAVEL OUTSIDE OF THE [place] IN LAST 30 DAYS: No - Related Data Allergies/Adverse Reactions: mushroom Allergy (Verified 01/08/18 08:26) Past Medical History - General Information source: Patient - Social History Smoking Status: Never Smoker Family History: Reviewed & Not Pertinent Renal/ Medical History: Denies: Hx Peritoneal Dialysis GI Medical History: Reports: Hx Gastroesophageal Reflux Disease Past Surgical History: Reports: Hx Appendectomy, Hx Cardiac Surgery, Hx Oral S urgery, Hx Orthopedic Surgery - L/R knee Physical Exam - Vital signs Vitals: Temp Pulse Resp BP Pulse Ox 97.8 F 83 16 145/89 H 100 02/11/18 22:52 02/11/18 22:52 02/11/18 22:52 02/11/18 22:52 02/11/18 22:52 Course - Re-evaluation Re-evalutation: Patient seen and examined vital signs reviewed. Laboratory data and imaging were ordered as appropriate for the patient's presenting symptoms and complaint, with consideration of any critical or life threatening conditions that may be associated with their obtained history and exam as noted above. Patient was treated with IV, morphine, Zofran Results were reviewed when available and demonstrated acute elevation in LFTs, and hyperbilirubinemia, concerning for cholangitis, given patient has history of cholelithiasis, right upper quadrant ultrasound was performed, did not demonstrate acute cholecystitis, but rather only cholelithiasis, common bile duct is 4 mm The patient was re-evaluated and was still having some pain, therefore IV Dilaudid 1 mg was ordered, and this did improve the patient's symptoms, she was much more comfortable, given these results, and they were compared with 2 days ago, this is an acute change in the patient's blood work, concerning for possible obstructing stone, that would need ERCP prior to cholecystectomy, we did not have gastroenterology component design engineer to perform this procedure, therefore a call was placed to transfer the patient to [facility], patient was agreeable to this plan of care. Evaluation was most consistent with cholangitis Results were discussed with the patient at this point after careful consideration I feel that that patient should be transferred to [facility] due to cholangitis patient was accepted by Dr. Mathis. This was discussed with the patient that it is in the best interest for their care to be transferred, the risks and benefits of transfer were discussed, including but not limited to clinical deterioration during transport, respiratory distress, and potential for traumatic injuries. Patient agreed with this plan of care. *Note is created using voice recognition software and may contain spelling, syntax or grammatical errors. Laboratory 02/11/18 02/11/18 02/11/18 23:30 23:30 23:30 WBC 6.3 RBC 4.69 Hgb 12.6 Hct 38.0 MCV 81 MCH 26.9 L MCHC 33.2 RDW 16.1 H Plt Count 237 Seg Neutrophils % 56.5 Lymphocytes % 34.7 Monocytes % 6.2 Eosinophils % 1.9 Basophils % 0.7 Absolute Neutrophils 3.6 Absolute Lymphocytes 2.2 Absolute Monocytes 0.4 Absolute Eosinophils 0.1 Absolute Basophils 0.0 Sodium Cancelled Potassium Cancelled Chloride Cancelled Carbon Dioxide Cancelled Anion Gap Cancelled BUN Cancelled Creatinine Cancelled Est GFR ( Amer) Cancelled Est GFR (Non-Af Amer) Cancelled Glucose Cancelled Calcium Cancelled Total Bilirubin Cancelled Direct Bilirubin Cancelled Neonat Total Bilirubin Cancelled Neonat Direct Bilirubin Cancelled Neonat Indirect Bili Cancelled AST Cancelled ALT Cancelled Alkaline Phosphatase Cancelled Total Protein Cancelled Albumin Cancelled Lipase Cancelled Urine Color ALENA Urine Appearance CLOUDY Urine pH 6.0 Ur Specific Jackson 1.027 Urine Protein 30 H Urine Glucose (UA) NEGATIVE Urine Ketones NEGATIVE Urine Blood NEGATIVE Urine Nitrite NEGATIVE Urine Bilirubin SMALL H Urine Urobilinogen 4.0 H Ur Leukocyte Esterase NEGATIVE Urine WBC (Auto) 6 Urine RBC (Auto) 6 Urine Bacteria (Auto) 1+ Squamous Epi Cells Auto 62 Urine Mucus (Auto) OCC Urine Ascorbic Acid NEGATIVE Urine HCG, Qual 02/11/18 02/12/18 23:30 00:10 WBC RBC Hgb Hct MCV MCH MCHC RDW Plt Count Seg Neutrophils % Lymphocytes % Monocytes % Eosinophils % Basophils % Absolute Neutrophils Absolute Lymphocytes Absolute Monocytes Absolute Eosinophils Absolute Basophils Sodium 140.6 Potassium 4.1 Chloride 109 H Carbon Dioxide 27 Anion Gap 5 BUN 12 Creatinine 0.67 Est GFR ( Amer) > 60 Est GFR (Non-Af Amer) > 60 Glucose 93 Calcium 8.8 Total Bilirubin 2.0 H Direct Bilirubin 1.6 H Neonat Total Bilirubin Not Reportable Neonat Direct Bilirubin Not Reportable Neonat Indirect Bili Not Reportable AST 666 H ALT 651 H Alkaline Phosphatase 263 H Total Protein 6.3 Albumin 3.8 Lipase 185.7 Urine Color Urine Appearance Urine pH Ur Specific Jackson Urine Protein Urine Glucose (UA) Urine Ketones Urine Blood Urine Nitrite Urine Bilirubin Urine Urobilinogen Ur Leukocyte Esterase Urine WBC (Auto) Urine RBC (Auto) Urine Bacteria (Auto) Squamous Epi Cells Auto Urine Mucus (Auto) Urine Ascorbic Acid Urine HCG, Qual NEGATIVE Abdomen Ultrasound 02/12/18 00:52 IMPRESSION: Cholelithiasis. No sonographic evidence for cholecystitis copyright 2011 [employer]- All Rights Reserved - Vital Signs Vital signs: Temp Pulse Resp BP Pulse Ox 98.3 F 80 16 129/95 H 100 02/12/18 03:28 02/12/18 03:28 02/12/18 03:28 02/12/18 03:28 02/12/18 03:28 - Laboratory Result Diagrams: 02/11/18 23:30 02/12/18 00:10 Laboratory results interpreted by me: 02/11/18 02/11/18 02/12/18 23:30 23:30 00:10 MCH 26.9 L RDW 16.1 H Chloride 109 H Total Bilirubin 2.0 H Direct Bilirubin 1.6 H AST 666 H ALT 651 H Alkaline Phosphatase 263 H Urine Protein 30 H Urine Bilirubin SMALL H Urine Urobilinogen 4.0 H Discharge - Discharge Clinical Impression: Cholangitis, Transaminitis, Hyperbilirubinemia Condition: Stable Disposition: [facility]
[2018-02-11 23:50] LABS: ABSOLUTE EOSINOPHILS # (AUTO) 0.1 10^3/uL (0.0-0.6); ABSOLUTE LYMPHOCYTES (AUTO) 2.2 10^3/uL (0.5-4.7); ABSOLUTE MONOCYTES (AUTO) 0.4 10^3/uL (0.1-1.4); ABSOLUTE NEUT (AUTO) 3.6 10^3/uL (1.7-8.2); BASOPHILS % (AUTO) 0.7 % (0-2); EOSINOPHILS % (AUTO) 1.9 % (0-6); HEMOGLOBIN 12.6 g/dL (12.0-15.5); LYMPHOCYTES % (AUTO) 34.7 % (13-45); MEAN CORPUSCULAR HEMOGLOBIN 26.9 pg (27.0-33.4); MEAN CORPUSCULAR HGB CONC 33.2 g/dL (32.0-36.0); MEAN CORPUSCULAR VOLUME 81 fl (80-97); MONOCYTES % (AUTO) 6.2 % (3-13); PLATELET COUNT 237 10^3/uL (150-450); RED BLOOD COUNT 4.69 10^6/uL (3.72-5.28); RED CELL DISTRIBUTION WIDTH 16.1 % (11.5-14.0); SEGMENTED NEUTROPHILS % (AUTO) 56.5 % (42-78); TOTAL CELLS COUNTED % (AUTO) 100 %; WHITE BLOOD COUNT 6.3 10^3/uL (4.0-10.5)
[2018-02-11 23:54] LABS: APPEARANCE,URINE CLOUDY; BILIRUBIN,URINE SMALL (NEGATIVE); COLOR,URINE AMBER; GLUCOSE, URINE NEGATIVE (NEGATIVE); KETONES,URINE NEGATIVE (NEGATIVE); LEUKOCYTE ESTERASE,URINE NEGATIVE (NEGATIVE); NITRITE,URINE NEGATIVE (NEGATIVE); PROTEIN,URINE 30 mg/dL (NEGATIVE); URINE SPECIFIC GRAVITY 1.027
[2018-02-12 00:38] LABS: ALANINE AMINOTRANSFERASE 651 U/L (5-35); ALBUMIN 3.8 g/dL (3.7-5.6); ALKALINE PHOSPHATASE 263 U/L (50-135); ANION GAP 5 (5-19); ASPARTATE AMINO TRANSFERASE 666 U/L (5-30); BILIRUBIN,DIRECT 1.6 mg/dL (0.0-0.4); BLOOD UREA NITROGEN 12 mg/dL (7-20); CALCIUM 8.8 mg/dL (8.4-10.2); CARBON DIOXIDE 27 mmol/L (22-30); CHLORIDE 109 mmol/L (98-107); GLUCOSE 93 mg/dL (75-110); LIPASE 185.7 U/L (23-300); POTASSIUM 4.1 mmol/L (3.6-5.0); SODIUM 140.6 mmol/L (137-145); TOTAL PROTEIN 6.3 g/dL (6.3-8.2)
[2018-02-12] MEDS ORDERED: HYDROMORPHONE HCL INJ/PF 2 MG/ML AMPULE IV ONE (00:54)
--- NOTE | 2018-02-12 01:47 | RADIOLOGY REPORT (SQ) ---
EXAM DESCRIPTION: US ABDOMEN LIMITED COMPLETED DATE/TME: 02/12/2018 00:52 CLINICAL HISTORY: 17 years, Female, ruq pain, elevated lfts COMPARISON: Prior ultrasound 02/10/2018 TECHNIQUE: Limited ultrasound right upper quadrant LIMITATIONS: None. FINDINGS: Liver is homogenous in echotexture without focal lesion. Stones and sludge in the gallbladder lumen. No gallbladder wall thickening or pericholecystic fluid. CBD measures 4 mm. Visualized portions of the pancreas are unremarkable. Portions are not well seen due to bowel gas. Visualized abdominal aorta and inferior vena cava are unremarkable. There is no ascites. Visualized right kidney is unremarkable. IMPRESSION: Cholelithiasis. No sonographic evidence for cholecystitis copyright 2010 [employer]- All Rights Reserved
[2018-02-12 04:05] VITALS: BP 129/95
== END 2018-02-12 04:32 | disposition short-term general hospital (02) ==
LOC: ER 22:43
DX: K83.09 Other cholangitis (principal); R74.0 Nonspecific elevation of levels of transaminase and lactic acid dehydrogenase [LDH]; E80.6 Other disorders of bilirubin metabolism; R10.11 Right upper quadrant pain; R11.2 Nausea with vomiting, unspecified
CPT/HCPCS: 99285; 96361; 96374; 96375; 36415; 83690; 85025; 81025; 80053; 81001; 76705; J2270; J1170; J2405; J7030

== ENCOUNTER 2018-07-31 11:00 | Emergency (ER) | payer OTHER ==
--- NOTE | 2018-07-31 11:16 | ER Document Report ---
HPI - HPI Time Seen by Provider: 07/31/18 11:12 Pain Level: 1 Notes: Patient is an otherwise healthy 17-year-old female presenting to the emergency department with concern for worms in her stool. Patient reports she noted this just prior to arrival. She denies any blood in her stool, denies any fever or vomiting. Patient also denies abdominal pain states she has been feeling just fine. - REPRODUCTIVE Reproductive: DENIES: : Past Medical History - General Information source: Patient - Social History Smoking Status: Never Smoker Frequency of alcohol use: None Drug Abuse: None Family History: Reviewed & Not Pertinent Renal/ Medical History: Denies: Hx Peritoneal Dialysis GI Medical History: Reports: Hx Gastroesophageal Reflux Disease Past Surgical History: Reports: Hx Appendectomy, Hx Cardiac Surgery, Hx Oral Surgery, Hx Orthopedic Surgery - L/R knee - Immunizations Immunizations up to date: Yes Vertical Provider Document - CONSTITUTIONAL Notes: PHYSICAL EXAMINATION: GENERAL: Well-appearing, well-nourished and in no acute distress. HEAD: Atraumatic, normocephalic. EYES: Pupils equal round extraocular movements intact, conjunctiva are normal. ENT: Nares patent NECK: Normal range of motion LUNGS: No respiratory distress Musculoskeletal: Normal range of motion NEUROLOGICAL: Normal speech, normal gait. PSYCH: Normal mood, normal affect. SKIN: Warm, Dry, normal turgor, no rashes or lesions noted. - INFECTION CONTROL TRAVEL OUTSIDE OF THE [place] IN LAST 30 DAYS: No Course - Re-evaluation Re-evalutation: Patient has a photo of her stool with her and it appears to be pinworms. Patient will be placed on the appropriate medications. Patient given strict ED return precautions and patient verbalizes agreement with same. Discharge - Discharge Clinical Impression: Pinworm infection Condition: Stable Disposition: HOME, SELF-CARE Additional Instructions: Please take a dose of the medication today and then repeat again in 2 weeks. Have your to purchase the [id number] version of pinworm treatment and go ahead and take a dose as well. Monitor your child's stool and seek recommendation from her floor inspector due to her age. Return to the emergency department with any new or worsening symptoms to include blood in your stool or severe abdominal pain. Prescriptions: RX: Albendazole 400 mg PO NOW #4 tablet Referrals: SD ZHENG DO [Primary Care Provider] - Follow up as needed
[2018-07-31 11:20] VITALS: BP 133/82
== END 2018-07-31 11:44 | disposition home or self-care (01) ==
LOC: ER 11:00
DX: Z53.21 Procedure and treatment not carried out due to patient leaving prior to being seen by health care provider (principal); R19.7 Diarrhea, unspecified
CPT/HCPCS: 99282

== ENCOUNTER 2018-08-11 21:47 | Emergency (ER) | payer OTHER ==
[2018-08-11 22:38] LABS: ABSOLUTE EOSINOPHILS # (AUTO) 0.1 10^3/uL (0.0-0.6); ABSOLUTE LYMPHOCYTES (AUTO) 2.6 10^3/uL (0.5-4.7); ABSOLUTE MONOCYTES (AUTO) 0.5 10^3/uL (0.1-1.4); ABSOLUTE NEUT (AUTO) 6.8 10^3/uL (1.7-8.2); BASOPHILS % (AUTO) 0.3 % (0-2); EOSINOPHILS % (AUTO) 0.8 % (0-6); HEMOGLOBIN 12.4 g/dL (12.0-15.5); LYMPHOCYTES % (AUTO) 26.3 % (13-45); MEAN CORPUSCULAR HEMOGLOBIN 26.2 pg (27.0-33.4); MEAN CORPUSCULAR HGB CONC 33.6 g/dL (32.0-36.0); MEAN CORPUSCULAR VOLUME 78 fl (80-97); MONOCYTES % (AUTO) 4.5 % (3-13); PLATELET COUNT 202 10^3/uL (150-450); RED BLOOD COUNT 4.74 10^6/uL (3.72-5.28); RED CELL DISTRIBUTION WIDTH 15.4 % (11.5-14.0); SEGMENTED NEUTROPHILS % (AUTO) 68.1 % (42-78); TOTAL CELLS COUNTED % (AUTO) 100 %
[2018-08-11 22:39] LABS: APPEARANCE,URINE CLOUDY; BILIRUBIN,URINE NEGATIVE (NEGATIVE); COLOR,URINE YELLOW; GLUCOSE, URINE NEGATIVE (NEGATIVE); KETONES,URINE NEGATIVE (NEGATIVE); LEUKOCYTE ESTERASE,URINE NEGATIVE (NEGATIVE); NITRITE,URINE NEGATIVE (NEGATIVE); PROTEIN,URINE NEGATIVE (NEGATIVE); UROBILINOGEN,URINE NEGATIVE mg/dL (<2.0)
[2018-08-11 22:57] LABS: ALANINE AMINOTRANSFERASE 18 U/L (5-35); ALBUMIN 4.7 g/dL (3.7-5.6); ALKALINE PHOSPHATASE 65 U/L (50-135); ANION GAP 8 (5-19); ASPARTATE AMINO TRANSFERASE 24 U/L (5-30); BILIRUBIN,DIRECT 0.1 mg/dL (0.0-0.4); BILIRUBIN,TOTAL 0.4 mg/dL (0.2-1.3); BLOOD UREA NITROGEN 12 mg/dL (7-20); CALCIUM 9.9 mg/dL (8.4-10.2); CARBON DIOXIDE 29 mmol/L (22-30); CHLORIDE 103 mmol/L (98-107); GLUCOSE 93 mg/dL (75-110); LIPASE 63.4 U/L (23-300); POTASSIUM 4.2 mmol/L (3.6-5.0); SODIUM 139.8 mmol/L (137-145); TOTAL PROTEIN 7.5 g/dL (6.3-8.2)
[2018-08-12] MEDS ORDERED: DIPHENHYDRAMINE HCL 50 MG/ML VIAL IV ONE (01:36)
[2018-08-12] MEDS ORDERED: NORMAL SALINE 1000 ML 1,000 ML IV ONE (01:36)
--- NOTE | 2018-08-12 01:50 | ER Document Report ---
ED General - General Chief Complaint: Nausea/Vomiting/Diarrhea Stated Complaint: ABDOMINAL PAIN Time Seen by Provider: 08/12/18 00:57 Primary Care Provider: FLAVIO WEBB MD [ACTIVE STAFF] - Follow up in 1 week (or your primary care. ) Notes: Patient is a 17-year-old female that presents to the emergency department for chief complaint of abdominal pain, anal itching, recent diagnosis of pinworms. Patient reports that she was recently seen and treated for pinworms, she was given a prescription for albendazole which she took a dose initially, and then repeated a week later her last dose was on . While she was at work today, she had significant abdominal pain, she describes as lower and aching, s cribed as a 7 out of 10 when it came on, she had vomiting associated as well. Lasted for about 6 hours, wax and wane, but since laying down in the emergency department she does feel better. She is had some diarrhea, she thinks is still some pinworms because she has had some itching still, was concerned that was incompletely treated. She denies any any fevers, chills, night sweats, chest pain, shortness of breath, dysuria or hematuria. Past Medical History: Denies chronic medical conditions Past Surgical History: Cholecystectomy, appendectomy Social History: Denies tobacco, alcohol or drug use. Family History: Reviewed and noncontributory for presenting illness Allergies: Reviewed, see documented allergy list. REVIEW OF SYSTEMS: Other than noted above, the 12 point review of systems was reviewed with the patient and were negative, all pertinent findings are included in the HPI. PHYSICAL EXAMINATION: Vital signs reviewed, nursing noted reviewed. GENERAL: Well-appearing, well-nourished and in no acute distress. HEAD: Atraumatic, normocephalic. EYES: Eyes appear normal, extraocular movements intact, sclera anicteric, conjunctiva are normal. ENT: nares patent, oropharynx clear without exudates. Moist mucous membranes. NECK: Normal range of motion, supple without lymphadenopathy LUNGS: Breath sounds clear to auscultation bilaterally and equal. No wheezes rales or rhonchi. HEART: Regular rate and rhythm without murmurs ABDOMEN: Soft, mild lower abdominal tenderness with palpation, no distention, normoactive bowel sounds. No rebound, guarding, or rigidity. No masses appreciated. EXTREMITIES: Nontender, good range of motion, no pitting or edema. NEUROLOGICAL: No focal neurological deficits. Moves all extremities spontaneously Motor and sensory grossly intact on exam. PSYCH: Normal mood, normal affect. SKIN: Warm, Dry, normal turgor, no rashes or lesions noted on exposed skin TRAVEL OUTSIDE OF THE [place] IN LAST 30 DAYS: No - Related Data Allergies/Adverse Reactions: mushroom Allergy (Verified 08/11/18 21:55) Past Medical History - Social History Smoking Status: Never Smoker Family History: Reviewed & Not Pertinent Renal/ Medical History: Denies: Hx Peritoneal Dialysis GI Medical History: Reports: Hx Gastroesophageal Reflux Disease Past Surgical History: Reports: Hx Appendectomy, Hx Cardiac Surgery, Hx C holecystectomy, Hx Oral Surgery, Hx Orthopedic Surgery - L/R knee - Immunizations Immunizations up to date: Yes Physical Exam - Vital signs Vitals: Temp Pulse Resp BP Pulse Ox 98.7 F 84 16 141/90 H 98 08/11/18 22:34 08/11/18 22:34 08/11/18 22:34 08/11/18 22:34 08/11/18 22:34 Course - Re-evaluation Re-evalutation: Patient seen and examined vital signs reviewed. Laboratory data and/or imaging were ordered as appropriate for the patient's presenting symptoms and complaint, with consideration of any critical or life threatening conditions that may be associated with their obtained history and ex am as noted above. Patient was treated with Toradol Results were reviewed when available and demonstrated unremarkable blood work, normal liver function, normal kidney function, no leukocytosis The patient was re-evaluated and was stable, pain seemed to be controlled, after discussion with the patient, she may not have completely eradicated her pinworm infection, as it may have been too early to repeat her albendazole dosing, at this point I recommend that she will take the [id number] pinworm treatment, but will give a prescription, of pyrantel pamoate, to take starting on Saturday or , repeat in 2 weeks, and have her follow-up with primary care. Evaluation was most consistent with pinworms, abdominal pain Results were discussed with the patient at this point, after careful consideration I feel that that patient can be discharged from the emergency department, the patient was educated treatments and reasons to return to the emergency department based on their presumed diagnosis as noted above, they were advised to followup with a primary care physician in 2-3 days. Patient was agreeable to plan of care. *Note is created using voice recognition software and may contain spelling, syntax or grammatical errors. Laboratory 08/11/18 08/11/18 08/11/18 22:00 22:00 22:00 WBC 10.0 RBC 4.74 Hgb 12.4 Hct 37.0 MCV 78 L MCH 26.2 L MCHC 33.6 RDW 15.4 H Plt Count 202 Seg Neutrophils % 68.1 Lymphocytes % 26.3 Monocytes % 4.5 Eosinophils % 0.8 Basophils % 0.3 Absolute Neutrophils 6.8 Absolute Lymphocytes 2.6 Absolute Monocytes 0.5 Absolute Eosinophils 0.1 Absolute Basophils 0.0 Sodium 139.8 Potassium 4.2 Chloride 103 Carbon Dioxide 29 Anion Gap 8 BUN 12 Creatinine 0.74 Est GFR ( Amer) > 60 Est GFR (Non-Af Amer) > 60 Glucose 93 Calcium 9.9 Total Bilirubin 0.4 Direct Bilirubin 0.1 Neonat Total Bilirubin Not Reportable Neonat Direct Bilirubin Not Reportable Neonat Indirect Bili Not Reportable AST 24 ALT 18 Alkaline Phosphatase 65 Total Protein 7.5 Albumin 4.7 Lipase 63.4 Urine Color YELLOW Urine Appearance CLOUDY Urine pH 6.0 Ur Specific [place] 1.020 Urine Protein NEGATIVE Urine Glucose (UA) NEGATIVE Urine Ketones NEGATIVE Urine Blood SMALL H Urine Nitrite NEGATIVE Urine Bilirubin NEGATIVE Urine Urobilinogen NEGATIVE Ur Leukocyte Esterase NEGATIVE Urine WBC (Auto) 2 Urine RBC (Auto) 2 Urine Bacteria (Auto) TRACE Squamous Epi Cells Auto 10 Urine Mucus (Auto) OCC Urine Ascorbic Acid NEGATIVE Urine HCG, Qual NEGATIVE - Vital Signs Vital signs: Temp Pulse Resp BP Pulse Ox 98.6 F 84 16 119/79 97 08/12/18 00:37 08/11/18 22:34 08/11/18 22:34 08/12/18 02:01 08/12/18 02:01 - Laboratory Result Diagrams: 08/11/18 22:00 08/11/18 22:00 Laboratory results interpreted by me: 08/11/18 08/11/18 22:00 22:00 MCV 78 L MCH 26.2 L RDW 15.4 H Urine Blood SMALL H Discharge - Discharge Clinical Impression: Pinworms Abdominal pain Qualifiers: Abdominal location: generalized Qualified Code(s): R10.84 - Generalized ab dominal pain Condition: Stable Disposition: HOME, SELF-CARE Instructions: Abdominal Pain ([facility]), Intestinal Parasites - Pinworms ([facility]) Additional Instructions: On recommend taking the prescribed pinworm medication, and repeat the dose 2 weeks after the initial dose. I recommend you take as needed [id number] Benadryl, every 8 hours, as this may help with some of your symptoms, you can also take Motrin or Tylenol. Prescriptions: Pyrantel Pamoate [Pinworm Treatment] 900 mg PO ONCE #36 ml Referrals: FLAVIO WEBB MD [ACTIVE STAFF] - Follow up in 1 week (or your primary care. )
[2018-08-12] MEDS ORDERED: KETOROLAC TROMETHAMINE 60 MG/2 ML SDV IM ONE (02:31)
[2018-08-12 02:48] VITALS: BP 125/85
== END 2018-08-12 02:56 | disposition home or self-care (01) ==
LOC: ER 21:47
DX: B80 Enterobiasis (principal); R10.84 Generalized abdominal pain; R11.2 Nausea with vomiting, unspecified; R19.7 Diarrhea, unspecified; Z91.018 Allergy to other foods; K21.9 Gastro-esophageal reflux disease without esophagitis; Z90.49 Acquired absence of other specified parts of digestive tract
CPT/HCPCS: 99284; 96372; 36415; 83690; 85025; 81025; 80053; 81001; J1885